=== PATIENT | male | born 1980 | race Caucasian/White ===

== ENCOUNTER 2021-03-03 15:53 | Emergency (ER) | payer OTHER ==
[~2021-03-03] VITALS: Ht 172.7 cm; Wt 83.0 kg
[2021-03-03] MEDS ORDERED: IBUP-2070 PO (17:14)
[2021-03-03 17:29] VITALS: BP 125/78
== END 2021-03-03 17:28 | disposition home or self-care (01) ==
LOC: EDH 15:53
DX: S60.022A Contusion of left index finger without damage to nail, initial encounter (principal); I10 Essential (primary) hypertension; Z79.1 Long term (current) use of non-steroidal anti-inflammatories (NSAID); X58.XXXA Exposure to other specified factors, initial encounter; Y93.89 Activity, other specified; Y92.89 Other specified places as the place of occurrence of the external cause; Y99.8 Other external cause status
CPT/HCPCS: 73140

== ENCOUNTER 2023-09-07 12:46 | Emergency (ER) | payer BC, OTHER ==
[~2023-09-07] VITALS: Ht 172.7 cm; Wt 83.9 kg
[~2023-09-07 12:46] MED LIST: IBUP-2070 PO
[2023-09-07] MEDS ORDERED: MORPHINE 4 MG SYG IVP ONE ×2 (13:00→14:00)
[2023-09-07] MEDS: KETOROLAC 30MG VIAL (30MG/ML) IVP ONE (13:18)
[2023-09-07] MEDS: ONDANSETRON 4MG INJ IVP ONE (13:18)
[2023-09-07 13:21] VITALS: BP 136/90; PULSE 120; RESP 20; O2SAT 99
[2023-09-07] MEDS: DIAZEPAM 5 MG/ML 2 ML SYG IVP ONE (13:37)
[2023-09-07] MEDS: MORPHINE 2 MG SYG IVP ONE ×2 (13:38→14:13)
[2023-09-07] MEDS: PROPOFOL 10 MG/ML 20ML VIAL IV ONE (13:50)
[2023-09-07] MEDS: PROPOFOL 10 MG/ML 20ML VIAL IV SCH (13:56)
[2023-09-07] MEDS: MIDAZOLAM HCL 5 MG/ML 2ML VIAL IV ONE (14:02)
[2023-09-07] MEDS ORDERED: IBUP-2077 PO (15:01)
== END 2023-09-07 16:56 | disposition home or self-care (01) ==
LOC: EDH 12:46
DX: S43.015A Anterior dislocation of left humerus, initial encounter (principal); I10 Essential (primary) hypertension; X58.XXXA Exposure to other specified factors, initial encounter; Y93.89 Activity, other specified; Y92.89 Other specified places as the place of occurrence of the external cause; Y99.8 Other external cause status
CPT/HCPCS: 99284; 23650; 96374; 96375; 73030; 73020; 96376; J2270 ×2; J3360; J2704; J2405; J1885; J2250; J3490

== ENCOUNTER 2023-09-17 10:25 | Emergency (ER) | payer BC ==
[~2023-09-17] VITALS: Ht 172.7 cm; Wt 84.8 kg
[~2023-09-17 10:25] MED LIST changes: +IBUP-2077 PO
[2023-09-17] MEDS ORDERED: [UNRECOGNIZED DRUG - OTHER] IV SCH (10:45)
[2023-09-17] MEDS ORDERED: KETAMINE IV SCH (10:45)
[2023-09-17] MEDS ORDERED: PHARMACY COMMUNICATION MISC SCH (11:00)
[2023-09-17] MEDS ORDERED: MIDAZOLAM HCL 1 MG/ML 5ML VIAL IVP ONE (11:00)
[2023-09-17] MEDS: MIDAZOLAM HCL 1 MG/ML 2ML VIAL IVP ONE (11:18)
[2023-09-17] MEDS: KETAMINE 50MG/ML SYRINGE 50 MG/ML DISP.SYRIN IV ONE (11:18)
[2023-09-17] MEDS ORDERED: PROPOFOL 10 MG/ML 20ML VIAL IV ONE (11:22)
[2023-09-17 13:05] VITALS: BP 147/93; PULSE 97; RESP 18; O2SAT 99
== END 2023-09-17 13:00 | disposition home or self-care (01) ==
LOC: EDH 10:25
DX: S43.015A Anterior dislocation of left humerus, initial encounter (principal); S43.035A Inferior dislocation of left humerus, initial encounter; I10 Essential (primary) hypertension; Z79.899 Other long term (current) drug therapy; Z98.890 Other specified postprocedural states; X58.XXXA Exposure to other specified factors, initial encounter; Y93.89 Activity, other specified; Y92.89 Other specified places as the place of occurrence of the external cause; Y99.8 Other external cause status
CPT/HCPCS: 99285; 23650; 99152; 73030 ×2; J2250; J2704; J3490; 99151; G0500